=== PATIENT | female | born 1995 | race Caucasian/White ===

== ENCOUNTER 2025-04-09 13:53 | Emergency (ER) | payer BC, SELFPAY ==
[2025-04-09 13:56] VITALS: BP 123/87
[2025-04-09 14:18] LABS: Hematocrit 41.8 % (37.0-47.0); Hemoglobin 13.9 g/dL (12.0-16.0); Mean Corp Hgb Conc. 33.3 g/dL (33.0-37.0); Mean Corpuscular Volume 86.0 fL (81.0-99.0); Nucleated Red Blood Cells % 0 %; Platelet Count 307 10^3/uL (130-400); Red Cell Dist. Width 12.4 % (11.5-14.5)
[2025-04-09 14:33] LABS: ALT (SGPT) 21 U/L (0-35); AST (SGOT) 24 U/L (14-36); Albumin 4.7 g/dl (3.5-5.0); Alkaline Phosphatase 48 U/L (38-126); Blood Urea Nitrogen 16 mg/dl (7-17); Calcium 9.9 mg/dl (8.4-10.2); Carbon Dioxide 25 mmol/L (22-30); Chloride 107 mmol/L (98-107); Glucose 92 mg/dl (70-99); Lipase 40 U/L (23-300); Potassium 4.6 mmol/L (3.5-5.1); Sodium 141 mmol/L (135-145); Total Protein 8.0 g/dl (6.3-8.2); eGFR > 60.00
--- NOTE | 2025-04-09 16:20 | ED.GENMED ---
History of Present Illness
<Ash Davis MD, Resident - Last Filed: 04/09/25 19:03>
General
Chief Complaint: Abdominal Pain
Source: patient
Exam Limitations: none
Time Seen by Provider: 04/09/25 16:16
Nursing documentation reviewed up to this point in time: agreed with
History of Present Illness
History of Present Illness:
This is a 30-year-old female with no significant past medical history, currently on control and no other prescription medication, presenting the emergency department with complaints of abdominal pain and diarrhea with mild ongoing nausea
without vomiting. She said her symptoms started 2 days ago. Her mother also had similar symptoms for past few days and she was recently diagnosed with gallstone. She denies any fevers or chills, denies any recent sickness or sick contacts.
Denies any recent travel or tick bites. Denies any headache, chest pain, trouble breathing. She did 2 test at home both were negative.
Past History
<Ash Davis MD, Resident - Last Filed: 04/09/25 19:03>
Past History
ED Past Medical History: None
ED Past Surgical History: None
Social History
Tobacco: Non-smoker
Alcohol: None
Drug: None
Living: with family
Family History
Family History: Other (Gallstone and diverticulosis)
Review of Systems
<Ash Davis MD, Resident - Last Filed: 04/09/25 19:03>
Review of Systems
Allergies reviewed?: Yes
Constitutional: Denies fever or chills
EENT: Denies sore throat
Respiratory: Denies cough
Cardiac: Denies chest pain
ABD/GI: Reports abdominal pain, nausea and diarrhea; Denies vomiting or constipated
: Denies dysuria or frequency
Musculoskeletal: Denies joint pain
Skin: Denies itching
Neurological: Denies dizzy
Endocrine: Denies polyuria
Hematologic/Lymphatic: Denies bleeding
Phy Exam
<Ash Davis MD, Resident - Last Filed: 04/09/25 19:03>
General Physical Exam
General Presentation: mild distress
General age: appears stated age
General Skin: warm
General Habitus: normal
General Mental: alert
General Hydration: appears well hydrated
Cardiovascular Exam
Cardiovascular Exam: regular rate/rhythm and no murmur
Pulmonary Exam
Pulmonary Exam: lungs clear, no crackles and no cough
Gastrointestinal Exam
Gastrointestinal Exam: soft, no pulsatile mass, no cva tenderness and tender (Epigastric and right upper quadrant)
Neurological Exam
Neurological Exam: alert and oriented x3
Musculoskeletal Exam
Musculoskeletal Exam: full ROM
Course
<Ash Davis MD, Resident - Last Filed: 04/09/25 19:03>
Orders/Labs/Results
Orders:
Orders
04/09/25 14:02
Complete Blood Count/With Diff Urgent
Comprehensive Metabolic Panel Urgent
HCG, Serum Qualitative Screen Urgent
Comment: ADD ON
Lipase Urgent
04/09/25 16:17
Add On- LAB Urgent
Tests Added?: b-hcg qual
04/09/25 16:37
CT Abd/pelvis W Iv Cont Urgent
Comment:
Reason For Exam: Abdominal pain
04/09/25 16:54
Urine Reflex Culture from [facility] [Urinalysis Reflex To Culture] Urgent
Date Specimen was Collected: 04/09/25
Time Specimen was Collected: 14:01
04/09/25 16:59
0.9% Sodium Chloride 500 ml [Nss] 500 ml IV BOLUS
Ondansetron Injectable [Zofran] 4 mg IV NOW STA
04/09/25 17:00
Pantoprazole [Protonix IV] 40 mg IV NOW STA
04/09/25 17:02
Dicyclomine [Bentyl] 10 mg PO NOW STA
Abnormal Lab Results
04/09/25
14:02
MPV 10.7 H fL
(7.4-10.4)
04/09/25 14:02
04/09/25 14:02
Vital Signs
Initial and Last Documented VS:
Initial Vital Signs
Temp Pulse Resp BP Pulse Ox
98.8 F 89 20 123/87 99
04/09/25 13:56 04/09/25 13:56 04/09/25 13:56 04/09/25 13:56 04/09/25 13:56
Last Documented Vital Signs
Temp Pulse Resp BP Pulse Ox
98.8 F 67 20 125/83 100
04/09/25 13:56 04/09/25 19:06 04/09/25 19:06 04/09/25 19:06 04/09/25 19:06
<Angel Kirby, DO - Last Filed: 04/09/25 19:14>
Orders/Labs/Results
Orders:
Orders
04/09/25 14:02
Complete Blood Count/With Diff Urgent
Comprehensive Metabolic Panel Urgent
HCG, Serum Qualitative Screen Urgent
Comment: ADD ON
Lipase Urgent
04/09/25 16:17
Add On- LAB Urgent
Tests Added?: b-hcg qual
04/09/25 16:37
CT Abd/pelvis W Iv Cont Urgent
Comment:
Reason For Exam: Abdominal pain
04/09/25 16:54
Urine Reflex Culture from [facility] [Urinalysis Reflex To Culture] Urgent
Date Specimen was Collected: 04/09/25
Time Specimen was Collected: 14:01
04/09/25 16:59
0.9% Sodium Chloride 500 ml [Nss] 500 ml IV BOLUS
Ondansetron Injectable [Zofran] 4 mg IV NOW STA
04/09/25 17:00
Pantoprazole [Protonix IV] 40 mg IV NOW STA
04/09/25 17:02
Dicyclomine [Bentyl] 10 mg PO NOW STA
Abnormal Lab Results
04/09/25
14:02
MPV 10.7 H fL
(7.4-10.4)
04/09/25 14:02
04/09/25 14:02
Vital Signs
Initial and Last Documented VS:
Initial Vital Signs
Temp Pulse Resp BP Pulse Ox
98.8 F 89 20 123/87 99
04/09/25 13:56 04/09/25 13:56 04/09/25 13:56 04/09/25 13:56 04/09/25 13:56
Last Documented Vital Signs
Temp Pulse Resp BP Pulse Ox
98.8 F 67 20 125/83 100
04/09/25 13:56 04/09/25 19:06 04/09/25 19:06 04/09/25 19:06 04/09/25 19:06
<Ash Davis MD, Resident - Last Filed: 04/09/25 19:03>
MDM/Problems Addressed
Differential Diagnosis Includes:
Enteritis vs appendicitis vs biliary colic vs renal colic vs unlikely UTI vs unlikely pancreatitis.
MDM/Problems Addressed:
CBC with normal WBC and Hb
CMP WNL. Lipase within normal limits
Will get CT abdomen/pelvis for further evaluation
Beta-hCG negative.
IV Zofran for nausea and Bentyl for abdominal pain/spasms.
Protonix IV 40 mg 1 dose
500 mL normal saline bolus
CT with no acute abdominal wall pelvis pathology/process.
Likely her symptoms are related to viral gastroenteritis.
Shared decision was made with the patient for discharge home. Short prescription of Zofran and Bentyl was sent to the pharmacy. She can also utilize Imodium [id number] for diarrhea. Return precautions reviewed. Patient agreed with the plan
and voices understanding. Advised to follow-up with outpatient family doctor
<Ash Davis MD, Resident - Last Filed: 04/09/25 19:03>
*Pulse Oximetry
SaO2: 99
Oxygen Mode of Delivery: Room air
Patient hypoxic: no
*Critical Care Note
Total Time (30-74mins, 75-104mins- exclusive of procedures): Not Applicable
ED Attending Note
<Ash Davis MD, Resident - Last Filed: 04/09/25 19:03>
-
Portions of this chart may have been created with voice recognition software.� Occasional wrong word or��sound alike� substitutions may have occurred due to the inherent limitations of voice recognition software.
<Angel Kirby DO - Last Filed: 04/09/25 19:14>
ED Attending Note
Patient seen and examined by attending physician: Yes
I performed a history and physical exam of patient and discussed management with resident, I reviewed resident's note and agree with documented findings and plan of care.: Yes
ED Attending Note:
Seen with resident examined independently 30-year-old female crampy upper and lower abdominal pain with loose stools, mother was sick with similar after eating a meal, here is feeling better after IV fluids and Bentyl CAT scan noted, reviewed with
patient
Discharge Plan
Departure
Patient Disposition: Home (Routine Discharge)
Date of Disposition: 04/09/25
Time of Disposition: 18:58
Patient with high blood pressure during this ER visit?: No
Condition: Good
Discharge Problem:
Gastroenteritis
Instructions: Viral gastroenteritis in adults
Prescriptions:
New
ondansetron 4 mg tablet,disintegrating
4 mg PO Q8H PRN (Reason: nausea and vomiting) Qty: 10 0RF
dicyclomine 10 mg capsule
10 mg PO BID Qty: 8 0RF
Referrals:
REDD CANNON CRNP [Family Provider, Family Practice] - Follow up in 1 week
Activity Restrictions/Additional Instructions:
You were seen at the [facility] emergency department with concerns of abdominal pain and diarrhea. While you were in the hospital we performed blood work including complete blood count which was normal. Complete metabolic panel which
showed normal values. Lipase was within normal limits. Beta-hCG was negative. You were given 1 dose of IV Zofran, IV Protonix and 500 mL of normal saline bolus in addition to 1 tablet of Bentyl [address] mg[address] CAT scan of your abdomen/pelvis was obtained
which showed No acute findings in the abdomen or pelvis, specifically no evidence of acute appendicitis.
Mild subchondral sclerosis of the bilateral sacroiliac joints which is nonspecific however can be seen in the setting of chronic inflammation.
Vitals remained stable during your stay in the hospital. Short prescription of Bentyl for abdominal spasm, and Zofran for nausea was sent to your pharmacy. You can also utilize Imodium from [id number] for diarrhea. please utilize them as
needed for above. If you develop any worsening of your current symptoms or any new symptoms or any worrisome symptoms please return to the emergency. No indication of any additional studies at this time.
Interventions
Interventions:
*Risk Screen - Suicide Last Done: 04/09/25 17:34
*General Assessment Last Done: 04/09/25 13:56
*Neglect/Abuse Screening Last Done: 04/09/25 17:34
*ED- Fall Risk Assessment Last Done: 04/09/25 17:34
*ED COVID-19 Vaccine History Last Done: 04/09/25 17:34
*Nursing Disposition Last Done: 04/09/25 19:07
[facility]-Tjjisz-Gmsyuxdsav Assessment Last Done: 04/09/25 17:34
Discharge Date and Time
Print Language: CROATIAN
[2025-04-09 16:36] VITALS: BMI 37.5
[2025-04-09 16:48] LABS: HCG, Serum Qualitative Screen Negative
[2025-04-09] MEDS: ZOFRAN 4 MG IV (17:24)
[2025-04-09] MEDS: PROTONIX IV 40 MG IV (17:24)
[2025-04-09] MEDS: BENTYL 10 MG PO (17:24)
[2025-04-09] MEDS: NSS 500 IV (17:27)
[2025-04-09 17:49] LABS: Urine Character Clear (Clear)
[2025-04-09 19:06] VITALS: BP 125/83
== END 2025-04-09 19:18 | disposition home or self-care (01) ==
LOC: EMR 13:53
PROVIDERS: Student in an Organized Health Care Education/Training Program; EMERGENCY PHYSICIAN Emergency Medicine; FAMILY PHYSICIAN Nurse Practitioner Family
DX: K52.9 Noninfective gastroenteritis and colitis, unspecified (principal); Z79.3 Long term (current) use of hormonal contraceptives
CPT/HCPCS: 96374; 96375; 99284; 74177; 80053; 81003; 83690; 84703; 85025; Q9967